=== PATIENT | female | born 1990 | race Caucasian/White ===

== ENCOUNTER 2016-05-20 16:55 | Emergency (ER) | payer BC ==
[~2016-05-20] VITALS: Ht 160 cm; Wt 64.4 kg
[2016-05-20 17:53] LABS: CHLORIDE 106 mEq/L (99-109); POTASSIUM 4.3 mEq/L (3.7-5.4); SODIUM 141 mEq/L (136-147)
[2016-05-20 17:56] LABS: GLUCOSE 101 mg/dL (70-99)
[2016-05-20 17:57] LABS: ANION GAP 15 MEQ/L (2-14)
[2016-05-20 17:58] LABS: TOTAL BILIRUBIN 0.4 mg/dL (0.0-1.0)
[2016-05-20 17:59] LABS: ALKALINE PHOSPHATASE 51 IU/L (3-129); GFR ESTIMATE (CALCULATED) > 59 mL/min/
[2016-05-20 18:00] LABS: UREA NITROGEN (BUN) 6 mg/dL (9-23)
[2016-05-20 18:02] LABS: HEMATOCRIT 43.3 % (36.0-46.0); MCH 30.5 PG (29.0-34.0); MCHC 33.7 G/DL (30.0-36.0); MCV 90.6 FL (83-99); MEAN PLAT.VOLUME 10.6 uM^3 (9.5-12.4); PLATELET COUNT 268 K/uL (156-360); RBC DIS.WIDTH-CV 12.6 % (11.8-14.6); RBC DIS.WIDTH-SD 41.1 % (39-53); RED BLOOD COUNT 4.78 M/uL (3.80-5.20); WHITE BLOOD COUNT 6.1 K/uL (4.1-10.2)
[2016-05-20 18:03] LABS: LIPASE 317 U/L (1.0-51.0)
[2016-05-20 18:09] LABS: QUANTITATIVE HCG < 4.0 MIU/ML
[2016-05-20] MEDS ORDERED: ZOFRAN ODT8 MG PO (19:59)
[2016-05-20 20:21] VITALS: BP 120/78
== END 2016-05-20 20:22 | disposition home or self-care (01) ==
LOC: EME 16:55 → RME 16:55
DX: R19.7 Diarrhea, unspecified (principal); R74.8 Abnormal levels of other serum enzymes; I10 Essential (primary) hypertension; Z91.040 Latex allergy status; Z88.1 Allergy status to other antibiotic agents
CPT/HCPCS: 76705; 80053; 81003; 83690; 84702; 85027; 99281; 99284